=== PATIENT | female | born 1950 | race Caucasian/White ===

== ENCOUNTER 2017-09-08 14:02 | Emergency (ER) | payer MEDICARE ==
[~2017-09-08] VITALS: Ht 157.5 cm; Wt 81.7 kg
[2017-09-08] MEDS ORDERED: DAYPRO600 MG PO (14:26)
[2017-09-08] MEDS ORDERED: TRAMADOL 50 MG50 MG PO (14:26)
[2017-09-08] MEDS ORDERED: HYDROCHLOROTHIA50 MG PO (14:27)
[2017-09-08] MEDS ORDERED: NEURONTIN 300300 M1 PO (14:27)
[2017-09-08] MEDS ORDERED: SYNTHROID50 MCG PO (14:28)
[2017-09-08] MEDS ORDERED: FLEXERIL PO (14:28)
[2017-09-08] MEDS ORDERED: HYDROCODONE-AP1 EAC6 PO (15:04)
[2017-09-08] MEDS ORDERED: ZOFRAN ODT4 MG PO (15:04)
[2017-09-08 16:00] VITALS: BP 172/80
== END 2017-09-08 16:00 | disposition home or self-care (01) ==
LOC: M.ERS 14:02
DX: M54.5 Low back pain (principal)

== ENCOUNTER → 2018-05-27 | Outpatient (CLI) | payer MEDICARE ==
[~2018-05-27] MED LIST: DAYPRO600 MG PO; FLEXERIL PO; HYDROCHLOROTHIA50 MG PO; HYDROCODONE-AP1 EAC6 PO; NEURONTIN 300300 M1 PO; SYNTHROID50 MCG PO; TRAMADOL 50 MG50 MG PO; ZOFRAN ODT4 MG PO
== END ==
LOC: M.ULTRA 15:00
DX: M79.605 Pain in left leg (principal)

== ENCOUNTER → 2020-07-13 | Outpatient (CLI) | payer MEDICARE | LOC: M.ULTRA 14:30 | PROVIDERS: ATTEND Nurse Practitioner Family | DX: M79.89 Other specified soft tissue disorders (principal) ==

== ENCOUNTER → 2020-10-31 | Outpatient (CLI) | payer MEDICARE | LOC: M.RAD 09-23 09:26 | PROVIDERS: ATTEND Nurse Practitioner Family | DX: Z12.31 Encounter for screening mammogram for malignant neoplasm of breast (principal); M85.88 Other specified disorders of bone density and structure, other site; M79.605 Pain in left leg; M79.604 Pain in right leg ==

== ENCOUNTER → 2021-06-20 | Outpatient (CLI) | payer MEDICARE | LOC: M.MRI 07:30 | PROVIDERS: ATTEND Nurse Practitioner Family | DX: M51.26 Other intervertebral disc displacement, lumbar region (principal); M51.27 Other intervertebral disc displacement, lumbosacral region; M51.24 Other intervertebral disc displacement, thoracic region; M48.061 Spinal stenosis, lumbar region without neurogenic claudication; M48.07 Spinal stenosis, lumbosacral region ==

== ENCOUNTER 2021-06-22 16:33 | Emergency (ER) | payer MEDICARE ==
[~2021-06-22] VITALS: Ht 152.4 cm; Wt 91.6 kg
[2021-06-22] MEDS ORDERED: ELIQUIS5 MG PO (16:58)
[2021-06-22] MEDS ORDERED: CARTIA XT180 M1 PO (16:58)
[2021-06-22] MEDS ORDERED: VITAMIN D21250 MCG PO (16:58)
[2021-06-22] MEDS ORDERED: HYDROCODON-ACE1 EAC7 PO (18:14)
[2021-06-22 18:24] VITALS: BP 133/98
== END 2021-06-22 18:25 | disposition home or self-care (01) ==
LOC: M.ERS 16:33
DX: S22.080A Wedge compression fracture of T11-T12 vertebra, initial encounter for closed fracture (principal); Z90.49 Acquired absence of other specified parts of digestive tract; Z90.710 Acquired absence of both cervix and uterus; Z79.899 Other long term (current) drug therapy; Z88.6 Allergy status to analgesic agent; Z88.1 Allergy status to other antibiotic agents; Z88.5 Allergy status to narcotic agent; Z88.0 Allergy status to penicillin; Z88.2 Allergy status to sulfonamides; Z91.040 Latex allergy status; X58.XXXA Exposure to other specified factors, initial encounter; Y93.89 Activity, other specified; Y92.89 Other specified places as the place of occurrence of the external cause; Y99.8 Other external cause status

== ENCOUNTER → 2021-07-05 | Outpatient (CLI) | payer MEDICARE ==
[~2021-07-05] VITALS: Ht 152.4 cm; Wt 88.5 kg
[~2021-07-05] MED LIST changes: +CARTIA XT180 M1 PO; +ELIQUIS5 MG PO; +GABAPENTIN600 M1 PO; +HYDROCODON-ACE1 EAC7 PO; +VITAMIN D21250 MCG PO
[2021-07-05 08:54] VITALS: BP 148/59
== END ==
LOC: M.INT 08:33
PROVIDERS: ATTEND Nurse Practitioner Family
DX: S22.088D Other fracture of T11-T12 vertebra, subsequent encounter for fracture with routine healing (principal); M47.816 Spondylosis without myelopathy or radiculopathy, lumbar region; X58.XXXD Exposure to other specified factors, subsequent encounter

== ENCOUNTER → 2021-07-13 | Outpatient (CLI) | payer MEDICARE ==
[~2021-07-13] VITALS: Ht 152.4 cm; Wt 88.5 kg
[2021-07-13 09:49] VITALS: BP 163/71
[2021-07-13 09:54] LABS: HEMATOCRIT 41.3 % (37.0-47.0); HEMOGLOBIN 13.4 gm/dL (12.0-15.0); MCH 28.6 pg (26.0-34.0); MCHC 32.5 g/dL (28.0-37.0); MCV 87.8 fL (80.0-100.0); MPV 8.8 fl. (7.2-11.1); RBC 4.7 mil/uL (4.20-5.00); RDW-CV 16.1 % (10.5-14.5); WBC 5.5 thou/uL (4.0-11.0)
[2021-07-13 10:04] LABS: CALCIUM 8.6 mg/dL (8.5-10.1); CREATININE 0.6 mg/dL (0.6-1.3); POTASSIUM 3.8 mmol/L (3.5-5.1)
[2021-07-13 10:08] LABS: APTT 26.9 Seconds (25.0-31.3); PROTIME 10.3 Seconds (9.20-11.50)
[2021-07-13 10:09] LABS: ALBUMIN 3.7 g/dL (3.4-5.0); TOTAL BILIRUBIN 0.5 mg/dL (<0.1-1.0); TOTAL PROTEIN 6.9 g/dL (6.4-8.2)
[2021-07-13 12:36] VITALS: BP 144/76
== END | disposition home or self-care (01) ==
LOC: M.INT 09:05
PROVIDERS: Radiology Diagnostic Radiology; ATTEND Radiology Diagnostic Radiology
DX: M54.9 Dorsalgia, unspecified (principal); S22.080A Wedge compression fracture of T11-T12 vertebra, initial encounter for closed fracture; M81.0 Age-related osteoporosis without current pathological fracture; Z98.890 Other specified postprocedural states; Z79.899 Other long term (current) drug therapy; Z90.710 Acquired absence of both cervix and uterus; Z90.49 Acquired absence of other specified parts of digestive tract; Z88.0 Allergy status to penicillin; Z91.040 Latex allergy status; Z88.8 Allergy status to other drugs, medicaments and biological substances; Z79.01 Long term (current) use of anticoagulants; X58.XXXA Exposure to other specified factors, initial encounter; Y93.89 Activity, other specified; Y92.89 Other specified places as the place of occurrence of the external cause; Y99.8 Other external cause status